=== PATIENT | female | born 1970 | race African-American/Black ===

== ENCOUNTER 2016-04-26 13:07 | Emergency (ER) | payer MEDICAID ==
[~2016-04-26] VITALS: Ht 167.6 cm; Wt 78.9 kg
[~2016-04-26 13:07] MED LIST: ATEN-60 PO; CITA20TA3 PO; CYCL10TA3 PO; DIPH2.5T73 PO; ERGO1CAP6 PO; ESCI20TA51 PO; LOR05T PO; MET10T PO; TRAM-297 PO; [UNRECOGNIZED DRUG - CODE] PO
[2016-04-26 13:41] LABS: Basophils # (auto) 0 uL; Basophils % (auto) 0.7 % (0.0-2.0); DEFINITIVE VIEW TRANSMISSION; Eosinophils # (auto) 0.1 uL; Eosinophils % (auto) 1.3 % (0.0-7.0); Hematocrit 37.2 % (36.0-46.0); Hemoglobin 12.2 g/dL (12.2-16.2); Lymphocytes # (auto) 2.7 uL; Lymphocytes % (auto) 36.5 % (10.0-50.0); Mean Corpuscular Hgb Conc. 32.9 g/dL (32.0-36.0); Mean Corpuscular Volume 75.8 fL (80.0-100.0); Mean Platelet Volume 8.1 fL (7.4-10.4); Monocytes # (auto) 0.6 uL; Monocytes % (auto) 7.6 % (0.0-12.0); Neutrophils % (auto) 53.9 % (37.0-80.0); Platelet Count (auto) 288 10^3/uL (140-450); White Blood Cell 7.4 10^3/uL (4.4-10.8)
[2016-04-26 13:42] LABS: Red Cell Distribution Width 23.3 % (11.6-16.0)
[2016-04-26 13:48] LABS: Urine Bilirubin Negative (Negative); Urine Blood TRACE /uL (Negative); Urine Color Yellow (Yellow); Urine Glucose Normal (Normal); Urine Ketone Negative (Negative); Urine Mucus FEW (None Seen); Urine Nitrite Negative (Negative); Urine RBC 2 /hpf (0 - 4); Urine Squamous Epithelial Cell MOD /hpf (<5); Urine Urobilinogen Normal (Negative); Urine pH 5.5 (5.0-8.0)
[2016-04-26 14:00] LABS: Albumin 3.1 g/dL (3.4-5.0); BUN/Creatinine Ratio 8.1; Bilirubin, Total 0.4 mg/dL (0.2-1.0); Calcium 8.8 mg/dL (8.5-10.1); Magnesium 2.1 mg/dL (1.6-2.6); Potassium 3.9 mmol/L (3.5-5.1)
[2016-04-26 14:54] LABS: Anisocytosis Slight; Microcytosis Moderate; Platelet Estimate Adequate
[2016-04-26] MEDS ORDERED: MORPHINE SULFATE 4 MG/ML SYRG IV ONE (23:30)
[2016-04-26] MEDS ORDERED: ONDANSETRON HCL 4 MG/2 ML VIAL IV ONE (23:30)
[2016-04-26] MEDS ORDERED: SODIUM CHLORIDE 0.9% 1,000 ML IV ONE (23:30)
[2016-04-27 00:34] LABS: Amylase 89 U/L (25-115)
[2016-04-27 01:45] VITALS: BP 125/77
== END 2016-04-27 02:05 | disposition home or self-care (01) ==
LOC: ER 13:17
DX: N39.0 Urinary tract infection, site not specified (principal); R11.2 Nausea with vomiting, unspecified; I25.10 Atherosclerotic heart disease of native coronary artery without angina pectoris; K21.9 Gastro-esophageal reflux disease without esophagitis; Z79.899 Other long term (current) drug therapy; Z91.041 Radiographic dye allergy status
CPT/HCPCS: 36415; 76705; 80053; 81001; 82150; 83690; 83735; 85025; 96361; 96374; 96375; 99285; J2270; J2405; J7030

== ENCOUNTER 2016-05-21 10:46 | Emergency (ER) | payer MEDICAID ==
[~2016-05-21] VITALS: Ht 167.6 cm; Wt 81.6 kg
[2016-05-21 11:47] LABS: Basophils # (auto) 0.1 uL; Basophils % (auto) 1.9 % (0.0-2.0); DEFINITIVE VIEW TRANSMISSION; Eosinophils # (auto) 0.1 uL; Eosinophils % (auto) 1.1 % (0.0-7.0); Hemoglobin 11.9 g/dL (12.2-16.2); Lymphocytes # (auto) 2.4 uL; Mean Corpuscular Hemoglobin 25.2 pg (28.0-32.0); Mean Corpuscular Hgb Conc. 32.2 g/dL (32.0-36.0); Mean Corpuscular Volume 78.3 fL (80.0-100.0); Mean Platelet Volume 7.9 fL (7.4-10.4); Monocytes # (auto) 0.6 uL; Monocytes % (auto) 8.7 % (0.0-12.0); Neutrophils # (auto) 3.3 uL; Neutrophils % (auto) 51.3 % (37.0-80.0); Platelet Count (auto) 297 10^3/uL (140-450); White Blood Cell 6.4 10^3/uL (4.4-10.8)
[2016-05-21 11:49] LABS: Urine RBC None Seen /hpf (0 - 4)
[2016-05-21 12:09] LABS: BUN/Creatinine Ratio 7.1; Bilirubin, Total 0.4 mg/dL (0.2-1.0); Calcium 8.5 mg/dL (8.5-10.1); Potassium 3.6 mmol/L (3.5-5.1)
[2016-05-21 12:12] LABS: Urine Bilirubin Negative (Negative); Urine Blood Negative /uL (Negative); Urine Color Yellow (Yellow); Urine Glucose Normal (Normal); Urine Ketone Negative (Negative); Urine Mucus FEW (None Seen); Urine Nitrite Negative (Negative); Urine Squamous Epithelial Cell MOD /hpf (<5); Urine Urobilinogen Normal (Negative); Urine pH 5.5 (5.0-8.0)
[2016-05-21 16:19] VITALS: BP 152/85
[2016-05-21] MEDS ORDERED: SODIUM CHLORIDE 0.9% 1,000 ML IV ONE (16:21)
[2016-05-21] MEDS ORDERED: PROMETHAZINE HCL 25 MG/ML 1ML IV ONE (16:30)
[2016-05-21] MEDS ORDERED: NALBUPHINE HCL 10 MG/1ml INJECTION IV ONE (16:30)
[2016-05-21] MEDS ORDERED: NALBUPHINE HCL 10 MG/1ml INJECTION IM ONE (17:00)
[2016-05-21] MEDS ORDERED: PROMETHAZINE HCL 25 MG/ML 1ML IM ONE (17:00)
== END 2016-05-21 17:45 | disposition home or self-care (01) ==
LOC: ER 10:46
DX: R10.11 Right upper quadrant pain (principal); G89.29 Other chronic pain; D50.9 Iron deficiency anemia, unspecified; I10 Essential (primary) hypertension; I25.10 Atherosclerotic heart disease of native coronary artery without angina pectoris; K21.9 Gastro-esophageal reflux disease without esophagitis; K86.1 Other chronic pancreatitis; R11.2 Nausea with vomiting, unspecified; R19.7 Diarrhea, unspecified; Z87.440 Personal history of urinary (tract) infections; Z91.041 Radiographic dye allergy status; Z79.899 Other long term (current) drug therapy
CPT/HCPCS: 36415; 80053; 81001; 83690; 85025; 96372; 99284; J2300; J2550; J7030

== ENCOUNTER 2016-11-24 08:15 | Emergency (ER) | payer MEDICAID ==
[~2016-11-24] VITALS: Ht 167.6 cm; Wt 73.9 kg
[2016-11-24 08:38] LABS: Basophils # (auto) 0 uL; Basophils % (auto) 0.5 % (0.0-2.0); CONDITION Y; DEFINITIVE SEE PRINTOUT; Eosinophils # (auto) 0.1 uL; Eosinophils % (auto) 1.3 % (0.0-7.0); Hematocrit 38.8 % (36.0-46.0); Hemoglobin 13.1 g/dL (12.2-16.2); Lymphocytes # (auto) 3.8 uL; Lymphocytes % (auto) 41.5 % (10.0-50.0); Mean Corpuscular Hemoglobin 25.9 pg (28.0-32.0); Mean Corpuscular Hgb Conc. 33.7 g/dL (32.0-36.0); Mean Corpuscular Volume 76.8 fL (80.0-100.0); Mean Platelet Volume 8.2 fL (7.4-10.4); Monocytes # (auto) 0.5 uL; Monocytes % (auto) 5.7 % (0.0-12.0); Neutrophils # (auto) 4.7 uL; Platelet Count (auto) 373 10^3/uL (140-450); Red Cell Distribution Width 19.9 % (11.6-16.0); White Blood Cell 9.2 10^3/uL (4.4-10.8)
[2016-11-24 09:08] LABS: Alkaline Phosphatase 68 U/L (45-117); Anion Gap 8 (5-15); Aspartate Aminotransferase 19 U/L (15-37); BUN/Creatinine Ratio 10.7; Bilirubin, Total 0.6 mg/dL (0.2-1.0); Blood Urea Nitrogen 11 mg/dL (7-18); Calcium 8.7 mg/dL (8.5-10.1); Carbon Dioxide 26 mmol/L (21-32); Chloride 104 mmol/L (98-107); GFR African American 74 mL/min; GFR Non-African American 61 mL/min; Glucose 101 mg/dL (74-106); Potassium 3.8 mmol/L (3.5-5.1); Sodium 138 mmol/L (136-145); Total Protein 7.3 g/dL (6.4-8.2)
[2016-11-24 09:35] LABS: Urine Bilirubin Negative (Negative); Urine Blood Negative /uL (Negative); Urine Color Yellow (Yellow); Urine Glucose Normal (Normal); Urine Ketone Negative (Negative); Urine Mucus FEW (None Seen); Urine Nitrite Negative (Negative); Urine RBC 1 /hpf (0 - 4); Urine Squamous Epithelial Cell FEW /hpf (<5); Urine pH 5.5 (5.0-8.0)
[2016-11-24 10:07] LABS: Microcytosis Slight
[2016-11-24 10:08] LABS: Platelet Estimate Adequate
[2016-11-24 10:10] LABS: Hypochromia Slight
[2016-11-24 10:11] LABS: Anisocytosis Slight
[2016-11-24] MEDS ORDERED: ONDANSETRON ODT 4 MG TAB PO ONE (12:15)
[2016-11-24] MEDS ORDERED: HYDROcodone-ACET 7.5/325MG TAB PO ONE (12:15)
[2016-11-24 13:55] VITALS: BP 119/74
== END 2016-11-24 15:12 | disposition home or self-care (01) ==
LOC: ER 08:15
DX: G89.29 Other chronic pain (principal); R10.11 Right upper quadrant pain; K21.9 Gastro-esophageal reflux disease without esophagitis; I25.10 Atherosclerotic heart disease of native coronary artery without angina pectoris; Z87.440 Personal history of urinary (tract) infections; Z79.899 Other long term (current) drug therapy; Z91.041 Radiographic dye allergy status
CPT/HCPCS: 36415; 74176; 80053; 81001; 81025; 83690; 84484; 85025; 99285; Q0162

== ENCOUNTER 2017-09-02 10:09 | Observation (INO) | payer MEDICAID ==
[~2017-09-02] VITALS: Ht 167.6 cm; Wt 79.4 kg
[~2017-09-02 10:09] MED LIST changes: -LOR05T PO; +LORA-654 PO
[2017-09-02 11:01] LABS: Basophils # (auto) 0.1 uL; Eosinophils # (auto) 0.1 uL; Hemoglobin 11.9 g/dL (12.2-16.2); Mean Corpuscular Volume 75.1 fL (80.0-100.0); Monocytes # (auto) 0.5 uL; Nucleated Red Blood Cells % 0.1 %
[2017-09-02 11:03] LABS: Basophils % (auto) 0.8 % (0.0-2.0); Hematocrit 34.8 % (36.0-46.0); Lymphocytes # (auto) 2.5 uL; Lymphocytes % (auto) 37.2 % (10.0-50.0); Mean Corpuscular Hemoglobin 25.7 pg (28.0-32.0); Mean Corpuscular Hgb Conc. 34.3 g/dL (32.0-36.0); Monocytes % (auto) 7.4 % (0.0-12.0); Neutrophils # (auto) 3.6 uL; Neutrophils % (auto) 53.6 % (37.0-80.0); Platelet Count (auto) 310 10^3/uL (140-450); Red Blood Cells 4.63 10^6/uL (4.0-5.20); Red Cell Distribution Width 16.3 % (11.8-14.3); White Blood Cell 6.7 10^3/uL (4.4-10.8)
[2017-09-02 11:20] LABS: BUN/Creatinine Ratio 7.6; Bilirubin, Total 0.3 mg/dL (0.2-1.0); Calcium 8.5 mg/dL (8.5-10.1); Total Protein 7.3 g/dL (6.4-8.2)
[2017-09-02 11:36] LABS: Urine Bacteria FEW /hpf (None Seen); Urine Blood Negative /uL (Negative); Urine Mucus FEW (None Seen); Urine WBC 3 /hpf (0 - 5)
[2017-09-02] MEDS ORDERED: SODIUM CHLORIDE 0.9% 1,000 ML IV ONE (13:45)
[2017-09-02] MEDS ORDERED: ONDANSETRON HCL 4 MG/2 ML VIAL IV ONE (13:45)
[2017-09-02] MEDS ORDERED: KETOROLAC TROMETH 30 MG/ML 1ML VIAL IV ONE (13:45)
[2017-09-02 15:05] VITALS: BP 109/63
== END 2017-09-02 15:34 | disposition home or self-care (01) | DRG 251 ==
LOC: ER 10:09 → OVERFLOW 13:36 → ER 15:34
PROVIDERS: ADMIT Family Medicine; ATTEND Family Medicine
DX: R10.9 Unspecified abdominal pain (principal); I10 Essential (primary) hypertension; N39.0 Urinary tract infection, site not specified; F17.210 Nicotine dependence, cigarettes, uncomplicated; K21.9 Gastro-esophageal reflux disease without esophagitis; Q62.5 Duplication of ureter; D57.3 Sickle-cell trait; Z82.49 Family history of ischemic heart disease and other diseases of the circulatory system
CPT/HCPCS: 36415; 74176; 80053; 81001; 81025; 83690; 85025; 96361; 96374; 96375; 99285; G0378; J1885; J2405; J7030

== ENCOUNTER 2017-09-06 12:31 | Emergency (ER) | payer MEDICAID ==
[~2017-09-06] VITALS: Ht 167.6 cm; Wt 78.9 kg
[2017-09-06 14:06] VITALS: BP 102/78
[2017-09-06 14:20] LABS: Urine Bacteria NONE SEEN /hpf (None Seen); Urine Blood Negative /uL (Negative); Urine Specific Gravity 1.025 (1.001-1.035); Urine WBC 1 /hpf (0 - 5)
== END 2017-09-06 16:14 | disposition home or self-care (01) ==
LOC: ER 12:35
DX: R10.9 Unspecified abdominal pain (principal); K21.9 Gastro-esophageal reflux disease without esophagitis; I10 Essential (primary) hypertension; M41.9 Scoliosis, unspecified; Z91.041 Radiographic dye allergy status
CPT/HCPCS: 81001

== ENCOUNTER 2019-03-29 07:34 | Emergency (ER) | payer MEDICAID ==
[~2019-03-29] VITALS: Ht 167.6 cm; Wt 83.5 kg
[~2019-03-29 07:34] MED LIST changes: +ALBUAER3 IN; +CHOL20007 PO; +CYPR4TAB50 PO; +DULO60CA PO; -LORA-654 PO; +LORA0.5T12 PO; +ONDA-144 PO; +PANC1CAP PO; +PANT20TA59 PO; -[UNRECOGNIZED DRUG - CODE] PO
[2019-03-29 08:05] LABS: Basophils # (auto) 0.1 uL; Eosinophils # (auto) 0.1 uL; Eosinophils % (auto) 1.4 % (0.0-7.0); Mean Corpuscular Volume 73.1 fL (80.0-100.0); Monocytes # (auto) 0.6 uL
[2019-03-29 08:08] LABS: Basophils % (auto) 1.1 % (0.0-2.0); Hematocrit 34.6 % (36.0-46.0); Hemoglobin 11.6 g/dL (12.2-16.2); Lymphocytes # (auto) 2.8 uL; Lymphocytes % (auto) 32.5 % (10.0-50.0); Mean Corpuscular Hemoglobin 24.6 pg (28.0-32.0); Mean Corpuscular Hgb Conc. 33.6 g/dL (32.0-36.0); Monocytes % (auto) 7.1 % (0.0-12.0); Neutrophils # (auto) 5.1 uL; Neutrophils % (auto) 57.9 % (37.0-80.0); Nucleated Red Blood Cells % 0.1 %; Platelet Count (auto) 322 10^3/uL (140-450); Red Blood Cells 4.74 10^6/uL (4.0-5.20); Red Cell Distribution Width 17.7 % (11.8-14.3); White Blood Cell 8.8 10^3/uL (4.4-10.8)
[2019-03-29 08:17] LABS: Urine Bacteria FEW /hpf (None Seen); Urine Blood Negative /uL (Negative); Urine Mucus FEW (None Seen); Urine Specific Gravity 1.027 (1.001-1.035); Urine WBC 3 /hpf (0 - 5)
[2019-03-29 08:55] LABS: Calcium 8.3 mg/dL (8.5-10.1)
[2019-03-29 08:58] LABS: Bilirubin, Total 0.3 mg/dL (0.2-1.0); Total Protein 7.6 g/dL (6.4-8.2)
[2019-03-29] MEDS ORDERED: SODIUM CHLORIDE 0.9% 500 ML IVB ONE (10:37)
[2019-03-29] MEDS ORDERED: SODIUM CHLORIDE 0.9% 1,000 ML IV ONE (10:37)
[2019-03-29] MEDS ORDERED: KETOROLAC TROMETH 30 MG/ML 1ML VIAL IV ONE (10:45)
[2019-03-29] MEDS ORDERED: FLEET MINERAL OIL ENEMA 133 ML PR ONE (10:45)
[2019-03-29] MEDS ORDERED: PROMETHAZINE HCL 25 MG/ML 1ML IV PRN (10:45)
[2019-03-29 12:30] LABS: Magnesium 2.2 mg/dL (1.6-2.6)
[2019-03-29 13:20] VITALS: BP 105/63
== END 2019-03-29 14:15 | disposition home or self-care (01) ==
LOC: ER 07:38
DX: R82.71 Bacteriuria (principal); K59.00 Constipation, unspecified; G89.4 Chronic pain syndrome; E46 Unspecified protein-calorie malnutrition; Z68.29 Body mass index [BMI] 29.0-29.9, adult; K21.9 Gastro-esophageal reflux disease without esophagitis; I10 Essential (primary) hypertension; Z79.899 Other long term (current) drug therapy; Z88.8 Allergy status to other drugs, medicaments and biological substances
CPT/HCPCS: 36415; 71046; 74176; 80053; 81001; 81025; 83690; 83735; 85025; 96361; 96374; 96375; 99284; J1885; J2550; J7030; J7040

== ENCOUNTER 2021-03-08 11:17 | Emergency (ER) | payer MEDICAID ==
[~2021-03-08] VITALS: Ht 167.6 cm; Wt 88.5 kg
[~2021-03-08 11:17] MED LIST changes: +ESCI-34 PO; -ESCI20TA51 PO; -LORA0.5T12 PO; +LORA0.5T20 PO
[2021-03-08 11:52] LABS: Basophils # (auto) 0.1 10 ^3/uL (0-0.2); Basophils % (auto) 0.7 % (0.0-2.0); Eosinophils # (auto) 0 10 ^3/uL (0-0.8); Eosinophils % (auto) 0.3 % (0.0-7.0); Hematocrit 37.9 % (36.0-46.0); Hemoglobin 12.8 g/dL (12.2-16.2); Lymphocytes # (auto) 4.1 10 ^3/uL (0.4-5.4); Lymphocytes % (auto) 28.6 % (10.0-50.0); Mean Corpuscular Hgb Conc. 33.8 g/dL (32.0-36.0); Mean Corpuscular Volume 79.9 fL (80.0-100.0); Monocytes % (auto) 7.1 % (0.0-12.0); Neutrophils # (auto) 9.1 10 ^3/uL (1.6-8.6); Neutrophils % (auto) 63.3 % (37.0-80.0); Nucleated Red Blood Cells % 0.2 %; Red Blood Cells 4.74 10^6/uL (4.0-5.20); Red Cell Distribution Width 18.9 % (11.8-14.3); White Blood Cell 14.3 10^3/uL (4.4-10.8)
[2021-03-08 12:08] LABS: Potassium 3.9 mmol/L (3.5-5.1)
[2021-03-08 12:18] LABS: Albumin 2.9 g/dL (3.4-5.0); BUN/Creatinine Ratio 15.5; Bilirubin, Total 0.3 mg/dL (0.2-1.0); Calcium 8.5 mg/dL (8.5-10.1); Total Protein 6.8 g/dL (6.4-8.2)
[2021-03-08 15:00] VITALS: BP 126/84
== END 2021-03-08 15:15 | disposition home or self-care (01) ==
LOC: ER 11:17
DX: R07.89 Other chest pain (principal); K21.9 Gastro-esophageal reflux disease without esophagitis; I10 Essential (primary) hypertension; Z86.2 Personal history of diseases of the blood and blood-forming organs and certain disorders involving the immune mechanism; Z79.899 Other long term (current) drug therapy; Z88.8 Allergy status to other drugs, medicaments and biological substances
CPT/HCPCS: 36415; 71046; 80053; 84484; 85025; 93005

== ENCOUNTER 2021-05-07 18:38 | Emergency (ER) | payer MEDICAID ==
[~2021-05-07] VITALS: Ht 167.6 cm; Wt 83.0 kg
[2021-05-07 18:40] VITALS: BP 146/75
== END 2021-05-08 01:32 | disposition left against medical advice (07) ==
LOC: ER 18:38
DX: Z46.6 Encounter for fitting and adjustment of urinary device (principal); Z53.21 Procedure and treatment not carried out due to patient leaving prior to being seen by health care provider

== ENCOUNTER 2022-05-12 19:51 | Emergency (ER) | payer MEDICAID ==
[~2022-05-12] VITALS: Ht 167.6 cm; Wt 86.5 kg
[2022-05-12 21:50] LABS: Urine Bacteria NONE SEEN /hpf (None Seen); Urine Blood 3+ /uL (Negative); Urine Specific Gravity 1.033 (1.001-1.035); Urine WBC 233 /hpf (0 - 5)
[2022-05-12] MEDS ORDERED: MORPHINE SULFATE 4 MG/ML SYR/VIAL IM ONE (23:45)
[2022-05-12] MEDS ORDERED: ONDANSETRON HCL 4 MG/2 ML VIAL IM ONE (23:45)
[2022-05-13 00:18] LABS: Basophils # (auto) 0 10 ^3/uL (0-0.2); Basophils % (auto) 0.4 % (0.0-2.0); Eosinophils # (auto) 0.3 10 ^3/uL (0-0.8); Eosinophils % (auto) 2.5 % (0.0-7.0); Hematocrit 38.7 % (36.0-46.0); Hemoglobin 13.1 g/dL (12.2-16.2); Lymphocytes # (auto) 5.4 10 ^3/uL (0.4-5.4); Lymphocytes % (auto) 50.5 % (10.0-50.0); Mean Corpuscular Hemoglobin 28.1 pg (28.0-32.0); Mean Corpuscular Hgb Conc. 33.7 g/dL (32.0-36.0); Mean Corpuscular Volume 83.3 fL (80.0-100.0); Monocytes # (auto) 0.9 10 ^3/uL (0-1.3); Monocytes % (auto) 8.4 % (0.0-12.0); Neutrophils # (auto) 4.1 10 ^3/uL (1.6-8.6); Neutrophils % (auto) 38.2 % (37.0-80.0); Nucleated Red Blood Cells % 0.2 %; Red Blood Cells 4.65 10^6/uL (4.0-5.20); Red Cell Distribution Width 16.3 % (11.8-14.3); White Blood Cell 10.7 10^3/uL (4.4-10.8)
[2022-05-13 00:32] LABS: Alanine Aminotransferase 23 U/L (13-56); Albumin 3.2 g/dL (3.4-5.0); Anion Gap 7 (5-15); Aspartate Aminotransferase 14 U/L (15-37); BUN/Creatinine Ratio 13.6; Blood Urea Nitrogen 12 mg/dL (7-18); Calcium 8.7 mg/dL (8.5-10.1); Carbon Dioxide 26 mmol/L (21-32); Chloride 109 mmol/L (98-107); GFR African American 87 mL/min; GFR Non-African American 72 mL/min; Glucose 109 mg/dL (74-106); Lipase 134 U/L (73-393); Magnesium 1.8 mg/dL (1.6-2.6); Potassium 4.1 mmol/L (3.5-5.1); Sodium 142 mmol/L (136-145)
[2022-05-13 00:35] LABS: Alkaline Phosphatase 59 U/L (45-117); Bilirubin, Total 0.3 mg/dL (0.2-1.0)
[2022-05-13] MEDS ORDERED: CEPH-510 PO (04:37)
[2022-05-13] MEDS ORDERED: ONDANSETRON ODT 4 MG TAB PO ONE (04:45)
[2022-05-13] MEDS ORDERED: cefTRIAXone SOD 1,000 MG VL IM ONE (04:45)
[2022-05-13] MEDS ORDERED: HYDROcodone-ACET 10/325MG TAB PO ONE (04:45)
[2022-05-13 05:43] VITALS: BP 149/81
== END 2022-05-13 05:48 | disposition home or self-care (01) ==
LOC: ER 19:51
DX: N39.0 Urinary tract infection, site not specified (principal); R32 Unspecified urinary incontinence; K21.9 Gastro-esophageal reflux disease without esophagitis; I10 Essential (primary) hypertension
CPT/HCPCS: 36415; 74176; 80053; 81001; 83605; 83690; 83735; 85025; 96372; 99285; J0696; Q0162

== ENCOUNTER 2023-09-30 15:57 | Emergency (ER) | payer MEDICAID ==
[~2023-09-30] VITALS: Ht 167.6 cm; Wt 86.1 kg
[~2023-09-30 15:57] MED LIST changes: +CEPH-510 PO; -DULO60CA PO; +DULO60CA41 PO; -ESCI-34 PO; +ESCI1TAB37 PO; +LORA-1121 PO; -LORA0.5T20 PO
[2023-09-30 17:17] LABS: Basophils # (auto) 0 10 ^3/uL (0-0.2); Basophils % (auto) 0.6 % (0.0-2.0); Eosinophils # (auto) 0.1 10 ^3/uL (0-0.8); Eosinophils % (auto) 1.6 % (0.0-7.0); Hematocrit 40.3 % (36.0-46.0); Hemoglobin 13.7 g/dL (12.2-16.2); Lymphocytes # (auto) 3.5 10 ^3/uL (0.4-5.4); Lymphocytes % (auto) 47.3 % (10.0-50.0); Mean Corpuscular Hemoglobin 28.3 pg (28.0-32.0); Mean Corpuscular Hgb Conc. 33.9 g/dL (32.0-36.0); Mean Corpuscular Volume 83.5 fL (80.0-100.0); Monocytes # (auto) 0.6 10 ^3/uL (0-1.3); Monocytes % (auto) 7.7 % (0.0-12.0); Neutrophils # (auto) 3.1 10 ^3/uL (1.6-8.6); Neutrophils % (auto) 42.8 % (37.0-80.0); Nucleated Red Blood Cells % 0.3 %; Red Blood Cells 4.83 10^6/uL (4.0-5.20); Red Cell Distribution Width 16.1 % (11.8-14.3); White Blood Cell 7.3 10^3/uL (4.4-10.8)
[2023-09-30 17:38] LABS: Alanine Aminotransferase 35 U/L (7-40); Albumin 4.2 g/dL (3.2-4.8); Alkaline Phosphatase 79 U/L (46-116); Anion Gap 12 (5-15); Aspartate Aminotransferase 55 U/L (13-40); BUN/Creatinine Ratio 11.5 (10.0-20.0); Bilirubin, Total 0.7 mg/dL (0.2-1.0); Blood Urea Nitrogen 10 mg/dL (9-23); Carbon Dioxide 24 mmol/L (20-30); Chloride 109 mmol/L (98-107); Glucose 159 mg/dL (74-106); Lipase 27 U/L (12-53); Potassium 4.5 mmol/L (3.5-5.1); Sodium 145 mmol/L (136-145); Total Protein 6.9 g/dL (5.7-8.2)
[2023-09-30 18:11] LABS: Lactic Acid w/Reflex 2.5 mmol/L (0.4-2.0)
[2023-09-30 20:32] LABS: Urine Bacteria FEW /hpf (None Seen); Urine Blood Negative /uL (Negative); Urine Clarity Clear (Clear); Urine Color Yellow (Yellow); Urine Hyaline Cast FEW /lpf (0 - 2); Urine Mucus FEW (None Seen); Urine Protein, UAD TRACE (Negative); Urine Specific Gravity 1.028 (1.001-1.035); Urine Urobilinogen 2 mg/dL (Negative); Urine WBC 2 /hpf (0 - 5); Urine pH 5.5 (5.0-9.0)
[2023-09-30] MEDS: METOCLOPRAMIDE HCL 5MG/ml INJ 2ml VIAL IM ONE ×2 (21:33→23:33)
[2023-09-30] MEDS ORDERED: PROC10TA6 PO (23:13)
[2023-09-30] MEDS ORDERED: METO-281 PO (23:13)
[2023-09-30] MEDS: ONDANSETRON HCL 4 MG/2 ML VIAL IM ONE (23:33)
[2023-09-30 23:38] VITALS: PULSE 72; RESP 16; O2SAT 98
[2023-09-30] MEDS: SODIUM CHLORIDE 0.9% 1,000 ML IV ONE (23:38)
[2023-09-30 23:41] VITALS: BP 122/84; PULSE 72; RESP 16; O2SAT 98
== END 2023-10-01 00:15 | disposition home or self-care (01) ==
LOC: ER 15:57
DX: R11.2 Nausea with vomiting, unspecified (principal); M19.90 Unspecified osteoarthritis, unspecified site; F32.A Depression, unspecified; K21.9 Gastro-esophageal reflux disease without esophagitis; I10 Essential (primary) hypertension; Z88.5 Allergy status to narcotic agent; Z86.2 Personal history of diseases of the blood and blood-forming organs and certain disorders involving the immune mechanism
CPT/HCPCS: 36415; 74176; 80053; 81001; 83605; 83690; 83880; 84484; 85025; 93005; 96372; 99285; J2405; J2765

== ENCOUNTER 2024-01-19 09:30 | Inpatient (IN) | payer MEDICAID ==
[~2024-01-19] VITALS: Ht 167.6 cm; Wt 88.4 kg
[~2024-01-19 09:30] MED LIST changes: +METO-281 PO; +PROC10TA6 PO
[2024-01-19 10:32] LABS: Chloride 106 mmol/L (98-107); Potassium 4.5 mmol/L (3.5-5.1); Sodium 140 mmol/L (136-145)
[2024-01-19 10:33] LABS: Anion Gap 11 (5-15); Calcium 9.2 mg/dL (8.7-10.4); Carbon Dioxide 23 mmol/L (20-31)
[2024-01-19 10:38] LABS: Glucose 186 mg/dL (74-106)
[2024-01-19 10:40] LABS: BUN/Creatinine Ratio 5.3 (10.0-20.0); Blood Urea Nitrogen < 5 mg/dL (9-23)
[2024-01-19 10:46] LABS: Basophils # (auto) 0 10 ^3/uL (0-0.2); Basophils % (auto) 0.4 % (0.0-2.0); Eosinophils # (auto) 0.2 10 ^3/uL (0-0.8); Eosinophils % (auto) 1.9 % (0.0-7.0); Hematocrit 37.9 % (36.0-46.0); Hemoglobin 13.1 g/dL (12.2-16.2); Lymphocytes # (auto) 3.8 10 ^3/uL (0.4-5.4); Lymphocytes % (auto) 46.4 % (10.0-50.0); Mean Corpuscular Hemoglobin 27.6 pg (28.0-32.0); Mean Corpuscular Hgb Conc. 34.4 g/dL (32.0-36.0); Monocytes # (auto) 0.8 10 ^3/uL (0-1.3); Monocytes % (auto) 10.2 % (0.0-12.0); Neutrophils # (auto) 3.3 10 ^3/uL (1.6-8.6); Neutrophils % (auto) 41.1 % (37.0-80.0); Nucleated Red Blood Cells % 0.1 %; Platelet Count (auto) 218 10^3/uL (140-450); Red Blood Cells 4.74 10^6/uL (4.0-5.20); White Blood Cell 8.1 10^3/uL (4.4-10.8)
[2024-01-19 11:09] LABS: Lipase 33 U/L (12-53)
[2024-01-19 12:00] LABS: Urine Bacteria None Seen /hpf (None Seen)
[2024-01-19 12:09] LABS: Urine Blood Negative /uL (Negative); Urine Clarity Clear (Clear); Urine Color Yellow (Yellow); Urine Protein, UAD Negative (Negative); Urine Specific Gravity 1.013 (1.001-1.035); Urine Urobilinogen Normal (Negative); Urine WBC 1 /hpf (0 - 5)
[2024-01-19] MEDS ORDERED: NITROGLYCERIN 0.4 MG SL TAB SL PRN ×2 (14:45→16:30)
[2024-01-19] MEDS ORDERED: ERGOCALCIFEROL 50,000 UNIT(1.25MG) CAP PO SCH (14:45)
[2024-01-19] MEDS ORDERED: DOCUSATE SOD 100 MG CAP PO PRN (14:45)
[2024-01-19] MEDS: ONDANSETRON HCL 4 MG/2 ML VIAL IV ONE (15:08)
[2024-01-19] MEDS: METOCLOPRAMIDE HCL 5MG/ml INJ 2ml VIAL IV ONE (16:01)
[2024-01-19] MEDS: PANTOPRAZOLE 40 MG/10 ML VIAL INJ IV ONE (16:01)
[2024-01-19] MEDS: HYDROcodone-ACET 5/325MG TAB PO ONE (16:03)
[2024-01-19] MEDS: SODIUM CHLORIDE 0.9% 1,000 ML IV SCH (16:07)
[2024-01-19] MEDS: PANCREATIC ENZYMES PO SCH (17:00)
[2024-01-19] MEDS: METOCLOPRAMIDE HCL 5MG/ml INJ 2ml VIAL IV SCH (18:00)
[2024-01-19] MEDS: PROCHLORPERAZINE EDISYLATE 5 MG/ML 2ML VIAL IV ONE (21:17)
[2024-01-19] MEDS: DULOXETINE HCL 60 MG PO SCH (22:16)
[2024-01-19] MEDS: DEXTROSE (50%) 50ML SYRG IV ONE (23:22)
[2024-01-19] MEDS: ACCU-CHEK COMFORT CURVE STRIP VI ONE (23:23)
[2024-01-19] MEDS: InsuLIN REG 1unit/0.01ml Soln (100units/ml) SC ONE (23:29)
[2024-01-20] MEDS: MORPHINE SULFATE INJ 2 MG/ml SYRG IV PRN (00:39)
[2024-01-20] MEDS: ONDANSETRON HCL 4 MG/2 ML VIAL IV PRN (00:41)
[2024-01-20 00:59] VITALS: PULSE 80; RESP 14; O2SAT 97
[2024-01-20 01:50] VITALS: PULSE 93; RESP 20; O2SAT 96
[2024-01-20 04:53] LABS: Basophils # (auto) 0.1 10 ^3/uL (0-0.2); Basophils % (auto) 0.6 % (0.0-2.0); Eosinophils # (auto) 0.2 10 ^3/uL (0-0.8); Eosinophils % (auto) 2.4 % (0.0-7.0); Hemoglobin 13.2 g/dL (12.2-16.2); Lymphocytes # (auto) 3.4 10 ^3/uL (0.4-5.4); Mean Corpuscular Hemoglobin 27.7 pg (28.0-32.0); Mean Corpuscular Hgb Conc. 34.8 g/dL (32.0-36.0); Mean Corpuscular Volume 79.8 fL (80.0-100.0); Monocytes # (auto) 0.8 10 ^3/uL (0-1.3); Monocytes % (auto) 9.6 % (0.0-12.0); Neutrophils # (auto) 4.1 10 ^3/uL (1.6-8.6); Neutrophils % (auto) 47.4 % (37.0-80.0); Nucleated Red Blood Cells % 0.1 %; Platelet Count (auto) 223 10^3/uL (140-450); Red Blood Cells 4.76 10^6/uL (4.0-5.20); Red Cell Distribution Width 15.9 % (11.8-14.3); White Blood Cell 8.6 10^3/uL (4.4-10.8)
[2024-01-20 05:21] LABS: Alanine Aminotransferase 39 U/L (7-40); Alkaline Phosphatase 86 U/L (46-116); Anion Gap 10 (5-15); Calcium 9.3 mg/dL (8.7-10.4); Carbon Dioxide 25 mmol/L (20-31); Chloride 107 mmol/L (98-107); Glucose 149 mg/dL (74-106); Potassium 4.4 mmol/L (3.5-5.1); Sodium 142 mmol/L (136-145)
[2024-01-20 05:22] LABS: Albumin 3.9 g/dL (3.2-4.8); Aspartate Aminotransferase 38 U/L (13-40); Bilirubin, Total 0.6 mg/dL (0.2-1.0); Total Protein 6.5 g/dL (5.7-8.2)
[2024-01-20 05:32] LABS: BUN/Creatinine Ratio 6.2 (10.0-20.0); Blood Urea Nitrogen < 5 mg/dL (9-23)
[2024-01-20] MEDS: ACCU-CHEK COMFORT CURVE STRIP VI ONE (07:00)
[2024-01-20] MEDS: DEXTROSE (50%) 50ML SYRG IV ONE (07:00)
[2024-01-20] MEDS: InsuLIN REG 1unit/0.01ml Soln (100units/ml) SC ONE (07:09)
[2024-01-20] MEDS ORDERED: DEXTROSE (50%) 50ML SYRG IV PRN (07:30)
[2024-01-20 08:00] VITALS: PULSE 87; RESP 18; O2SAT 95
[2024-01-20 08:44] VITALS: BP 141/72; PULSE 72; PULSE 96; RESP 17; TEMP 98.2; O2SAT 97; O2SAT 99
[2024-01-20] MEDS: PANTOPRAZOLE 40 MG/10 ML VIAL INJ IV SCH (09:07)
[2024-01-20] MEDS: CITALOPRAM HYDROBR 20 MG TAB PO SCH (09:07)
[2024-01-20] MEDS ORDERED: PATIENTS OWN MEDICATION (Escitalopram Oxalate 20 MG) PO SCH (10:00)
[2024-01-20] MEDS: InsuLIN REG 1unit/0.01ml Soln (100units/ml) SC SCH (11:30)
[2024-01-20] MEDS ORDERED: GAB100C PO (11:34)
[2024-01-20] MEDS ORDERED: FOLI-119 PO (11:34)
[2024-01-20] MEDS ORDERED: VIBE75TA PO (11:34)
[2024-01-20] MEDS ORDERED: ROSU10TA64 PO (11:34)
[2024-01-20] MEDS ORDERED: METH2.5T62 PO (11:34)
[2024-01-20] MEDS ORDERED: LEUC5TAB PO (11:34)
[2024-01-20] MEDS ORDERED: [UNRECOGNIZED DRUG - CODE] SC (11:34)
[2024-01-20] MEDS ORDERED: QUET100T47 PO (11:34)
[2024-01-20] MEDS ORDERED: PANC3600 PO (11:34)
[2024-01-20] MEDS ORDERED: ADAL40IN2 SC (11:34)
[2024-01-20] MEDS ORDERED: ASPI-325 PO (11:34)
[2024-01-20] MEDS ORDERED: GLIP5TAB21 PO (11:36)
[2024-01-20] MEDS ORDERED: IRON50IN3 IJ (11:39)
[2024-01-20] MEDS: ATENOLOL 25 MG TAB PO SCH (12:45)
[2024-01-20] MEDS: PROCHLORPERAZINE EDISYLATE 5 MG/ML 2ML VIAL IV PRN (13:06)
[2024-01-20] MEDS: ACCU-CHEK COMFORT CURVE STRIP VI SCH (13:11)
[2024-01-20] MEDS: cefTRIAXone 1GM/50ML D5W 50 ML IV ONE (14:12)
[2024-01-20] MEDS: METHOTREXATE 2.5 MG TAB PO SCH (14:44)
[2024-01-20] MEDS: metroNIDAZOLE 500MG/100ML 100 ML IV SCH (14:44)
[2024-01-20] MEDS: PANCREATIC ENZYMES PO SCH (14:45)
[2024-01-20 20:59] VITALS: BP 131/78; PULSE 74; RESP 18; TEMP 98.2; O2SAT 94
[2024-01-20] MEDS: traMADol HCL 50 MG TAB PO ONE (23:20)
[2024-01-21] VITALS (7 sets, daily range): BP systolic 115–143; BP diastolic 61–83; PULSE 79–93; RESP 16–18; TEMP 98.1–98.2; O2SAT 93–97
[2024-01-21] MEDS: cefTRIAXone 1GM/50ML D5W 50 ML IV SCH (10:16)
[2024-01-21] MEDS: traMADol HCL 50 MG TAB PO PRN (17:16)
[2024-01-22 01:00] VITALS: BP 134/75; PULSE 99; RESP 22; TEMP 97.9; O2SAT 100
[2024-01-22 05:00] VITALS: BP 139/81; PULSE 71; RESP 20; TEMP 98.7; O2SAT 95
[2024-01-22 09:00] VITALS: BP 131/81; PULSE 92; RESP 17; TEMP 98.2; O2SAT 94
[2024-01-22] MEDS ORDERED: METR-344 PO (09:35)
[2024-01-22] MEDS ORDERED: TRAM-626 PO (09:35)
== END 2024-01-22 13:47 | disposition home or self-care (01) | DRG 248 ==
LOC: ER 09:30 → OVERFLOW 16:19 → CENTRAL 01-20 08:45
PROVIDERS: ADMIT Nurse Practitioner Family; ATTEND Family Medicine
DX: A04.9 Bacterial intestinal infection, unspecified (principal); K76.0 Fatty (change of) liver, not elsewhere classified; L40.59 Other psoriatic arthropathy; D16.9 Benign neoplasm of bone and articular cartilage, unspecified; D64.9 Anemia, unspecified; E11.65 Type 2 diabetes mellitus with hyperglycemia; D32.9 Benign neoplasm of meninges, unspecified; D57.3 Sickle-cell trait; F41.9 Anxiety disorder, unspecified; I10 Essential (primary) hypertension; K44.9 Diaphragmatic hernia without obstruction or gangrene; K21.9 Gastro-esophageal reflux disease without esophagitis; F32.A Depression, unspecified; K86.1 Other chronic pancreatitis; M79.7 Fibromyalgia; Z86.011 Personal history of benign neoplasm of the brain; Z83.3 Family history of diabetes mellitus; Z83.2 Family history of diseases of the blood and blood-forming organs and certain disorders involving the immune mechanism; Z82.49 Family history of ischemic heart disease and other diseases of the circulatory system; Z84.81 Family history of carrier of genetic disease; Z88.8 Allergy status to other drugs, medicaments and biological substances; Z79.899 Other long term (current) drug therapy; Z80.9 Family history of malignant neoplasm, unspecified
CPT/HCPCS: 36415; 74176; 80048; 80053; 81001; 81025; 82962; 83036; 83690; 85025; 96372; 96374; 96375; G0378; J1815; J2405; J2470; J3490

== ENCOUNTER 2025-04-13 11:46 | Emergency (ER) | payer MEDICAID ==
[~2025-04-13] VITALS: Ht 167.6 cm; Wt 83.6 kg
[~2025-04-13 11:46] MED LIST changes: +ADAL40IN2 SC; +ASPI-325 PO; -CEPH-510 PO; -CYPR4TAB50 PO; -DIPH2.5T73 PO; -DULO60CA41 PO; -ESCI1TAB37 PO; +FOLI-119 PO; +GAB100C PO; +GLIP5TAB21 PO; +IRON50IN3 IJ; +LEUC5TAB PO; -LORA-1121 PO; +METH2.5T62 PO; +METR-344 PO; -ONDA-144 PO; -PANC1CAP PO; +PANC3600 PO; +QUET100T47 PO; +ROSU10TA64 PO; -TRAM-297 PO; +TRAM-626 PO; +VIBE75TA PO; +[UNRECOGNIZED DRUG - CODE] SC
--- NOTE | 2025-04-13 12:58 | ED.PDOC ---
GI ASSESSMENT HPI Comments A 54 year old woman with PMHx of HTN, diabetes, and pancreatitis presents to the emergency department for chief complaint of abdominal pain onset 2 weeks ago. Pt reports symptoms of nausea and vomiting that she is associating with her current Rx plan. Pt reports she was on Percocet but began taking it in combination with Miralax to prevent constipation. Pt denies associated symptoms of shortness of breath, dizziness, chest pain, fever, or chills. Chief Complaint: Nausea/Vomiting Time Seen by MD: 12:55 Primary Care Provider: FIOR Reviewed Notes: Nurses Notes, Medications, Allergies Allergies: Coded Allergies: Iodine (Unverified Allergy, Unknown, 09/30/13) Home Meds Active Scripts Metronidazole (Flagyl) 500 Mg Tab, 1 TAB PO TID, #30 TAB Prov:NICOLÁS WILLIS MD 01/22/24 Tramadol HCl (Tramadol HCl) 50 Mg Tab, 50 MG PO QID PRN, #30 TAB Prov:NICOLÁS WILLIS MD 01/22/24 Prochlorperazine Maleate (Compazine) 10 Mg Tb, 1 TAB PO Q6HR, #20 TAB 0 Refills Prov:ALECIA WEISS PAC 09/30/23 Metoclopramide Hcl (Reglan) 10 Mg Tab, 10 MG PO Q6HP PRN, #20 TAB Prov:ALECIA WEISS PAC 09/30/23 Reported Medications Iron Dextran (Infed) 50 Mg/Ml Inj, 50 MG IJ, INJ 01/20/24 Glipizide (Glipizide) 5 Mg Tab, 1 TAB PO BID 01/20/24 Glucagon (Gvoke Hypopen 2-Pack) 0.5 Mg/0.1 Ml Inj, 0.5 MG SC, INJ 01/20/24 Gabapentin (Gabapentin) 100 Mg Cap, 3 PO TID 01/20/24 Leucovorin Calcium (Leucovorin Calcium) 5 Mg Tab, 1 TAB PO QWEEKLY 01/20/24 Vibegron (Gemtesa) 75 Mg Tab, 1 TAB PO DAILY 01/20/24 Aspirin (Aspirin Low Dose) 81 Mg Tab, 1 TAB PO DAILY 01/20/24 Pancrelipase (Lipase-Protease- (CREON) 36,000 Unt Cap, 2 CAP PO TID 01/20/24 Adalimumab (Humira Pen) 40 Mg/0.4 Ml Inj, 40 MG SC 01/20/24 Methotrexate (Methotrexate Sodium) 2.5 Mg Tab, 4 TAB PO QWEEKLY 01/20/24 Folic Acid (Folic Acid) 1 Mg Tab, 1 TAB PO DAILY 01/20/24 Rosuvastatin Calcium (Rosuvastatin Calcium) 10 Mg Tab, 1 TAB PO DAILY 01/20/24 Quetiapine Fumerate (QUETIAPINE FUMARATE) 100 Mg Tab, 1 TAB PO 01/20/24 Albuterol Sulfate (VENTOLIN MDI) 90 Mcg Ih, 90 MCG IN for 30 Days, MCG 09/29/18 Pantoprazole Sodium Sesquihydr (Pantoprazole Sodium Dr) 20 Mg Tab, 20 MG PO DAILY, TAB 09/29/18 Cholecalciferol (VITAMIN D3) 2,000 Unit Tab, 1000 UNIT PO BID, TAB 09/29/18 Citalopram Hydrobromide (CeleXA TABLET) 20 Mg Tb, 20 MG PO DAILY 10/07/15 Ergocalciferol (Vitamin D) 50,000 Unt Cap, 96827 UNT PO QWEEKLY, CAP 10/07/15 Atenolol (Atenolol) 25 Mg Tab, 1 TAB PO DAILY, #30 TAB 5 Refills 10/06/15 Metoclopramide Hcl (REGLAN TABLET) 10 Mg Tb, 10 MG PO TIDBM 10/06/15 Cyclobenzaprine Hcl (FLEXERIL) 10 Mg Tab, 5 MG PO TID, TAB 06/07/14 Information Source: Patient Mode of Arrival: Ambulatory Timing: Weeks Duration: Since onset Prehospital treatment: None Quality: Aching, None Vomitus: None Severity: Moderate Recent: None Pain Location: Diffuse Modifying Factors: Nothing Associated sign and symptoms: Nausea, Vomiting, Constipation Past Medical History PAST MEDICAL HISTORY: Anemia, Arthritis, Depression, DM, GERD, HTN, UTI'S Surgical History: Denies all surgeries SALES ORDER SPECIALIST History: No Pertinent SALES ORDER SPECIALIST History Family History Family History: Family hx of DM, Family hx of Cancer, Family hx of heart malik Family History (Other): Mother has hypertension sickle cell trait and anemia, SLE Social History Smoker: Non-Smoker Alcohol: Denies ETOH Use Drugs: Denies Drug Use Lives In: Home Constitutional: denies: chills, diaphoresis, fatigue, fever, malaise, sweats, weakness, others EENTM: denies: blurred vision, double vision, ear bleeding, ear discharge, ear drainage, ear pain, ear ringing, eye pain, eye redness, hearing loss, mouth pain, mouth swelling, nasal discharge, nose bleeding, nose congestion, nose pain, photophobia, tearing, throat pain, throat swelling, voice changes, others Respiratory: denies: cough, hemoptysis, orthopnea, SOB at rest, shortness of breath, SOB with excertion, stridor, wheezing, others Cardiovascular: denies: chest pain, dizzy spells, diaphoresis, Dyspnea on exertion, edema, irregular heart beat, left arm pain, lightheadedness, palpitations, PND, syncope, others Gastrointestinal: reports: abdominal pain, constipated, nausea, vomiting; denies: abdomen distended, blood streaked bowels, diarrhea, dysphagia, difficulty swallowing, hematemesis, melena, poor appetite, poor fluid intake, re ctal bleeding, rectal pain, others Genitourinary: denies: abnormal vagina bleeding, burning, dyspareunia, dysuria, flank pain, frequency, hematuria, incontinence, pain, , vagina discharge, urgency, others Neurological: denies: dizziness, fainting, headache, left sided numbness, left sided weakness, numbness, paresthesia, pre-existing deficit, right sided numbness, right sided weakness, seizure, speech problems, tingling, tremors, weakness, others Musculoskeletal: denies: back pain, gout, joint pain, joint swelling, muscle pain, muscle stiffness, neck pain, others Integumetry: denies: bruises, change in color, change in hair/nails, dryness, laceration, lesions, lumps, rash, wounds, others Allergic/Immunocompromised: denies: Difficulty Healing, Frequent Infections, Hives, Itching, others Hematologic/Lymphatic: denies: anemia, blood clots, easy bleeding, easy bruising, swollen glands, others Endocrine: denies: excessive hunger, excessive sweating, excessive thirst, excessive urination, flushing, intolerance to cold, intolerance to heat, unexplained weight gain, unexplained weight loss, others Psychiatric: denies: anxiety, bipolar disorder, depression, hopeless, panic disorder, schizophrenia, sleepless, suicidal, others All Other Systems: Reviewed and Negative Physical Exam General Appearance: Moderate Distress HEENT: Normal ENT Inspection, Pharynx Normal, TMs Normal Neck: Full Range of Motion, Non-Tender, Normal, Normal Inspection Respiratory: Chest Non-Tender, Lungs Clear, No Accessory Muscle Use, No Respiratory Distress, Normal Breath Sounds Cardiovascular: No Edema, No JVD, No Murmur, No Gallop, Normal Peripheral Pulses, Regular Rate/Rhythm Breast Exam: Deferred Gastrointestinal: No Organomegaly, Non Tender, No Pulsatile Mass, Normal Bowel Sounds, Soft Genitalia: Deferred Pelvic: Deferred Rectal: Deferred Extremities: No calf tenderness, Normal capillary refill, Normal inspection, Normal range of motion, Non-tender, No pedal edema Musculoskeletal : Apperance: Normal Neurologic: Alert, No Motor Deficits, No Sensory Deficits Cerebellar Function: NOT DONE Reflexes: NOT DONE Skin: Normal Color Peripheral Pulses: 3+ Radial (R), 3+ Radial (L) Lymphatic: No Adenopathy Was a procedure done? Was a procedure done?: No GI differential Dx Differential Diagnosis: Constipation, Diverticular disease, Esophagitis, Gastritis/PUD, Gastroenteritis, Electrolyte Imbalance X-Ray, Labs, Meds, VS Vital Signs Date Time Temp Pulse Resp B/P (MAP) Pulse Ox O2 Delivery O2 Flow Rate FiO2 04/13/25 13:50 118 18 97 Room Air* 0 21 04/13/25 13:50 98.0 118 18 136/99 (111) 97 98.0 04/13/25 11:53 97.7 127 18 157/92 97 97.7 Lab Test 04/13/25 13:57 04/13/25 13:41 Range/Units Urine Color Light-yellow Yellow Urine Clarity Clear Clear Urine pH 5.5 5.0-9.0 Urine Specific [place] 1.017 1.001-1.035 Urine Protein Negative Negative Urine Ketones Negative Negative Urine Blood Negative Negative /uL Urine Nitrite Negative Negative Urine Bilirubin Negative Negative Urine Urobilinogen Normal Negative mg/dL Urine Leukocyte Esterase Negative Negative /uL Urine RBC 1 0 - 4 /hpf Urine Microscopic WBC 1 0-5 /HPF Urine Squamous Epithelial Cells Few <5 /hpf Urine Bacteria Few H None Seen /hpf Urine Glucose Normal Normal mg/dL White Blood Count 8.2 4.4-10.8 10^3/uL Red Blood Count 5.30 H 4.0-5.20 10^6/uL Hemoglobin 13.5 12.2-16.2 g/dL Hematocrit 39.8 36.0-46.0 % Mean Corpuscular Volume 75.1 L 80.0-100.0 fL Mean Corpuscular Hemoglobin 25.5 L 28.0-32.0 pg Mean Corpuscular Hemoglobin Concent 34.0 32.0-36.0 g/dL Red Cell Distribution Width 16.4 H 11.8-14.3 % Platelet Count 289 140-450 10^3/uL Mean Platelet Volume 8.2 6.9-10.8 fL Neutrophils (%) (Auto) 53.3 37.0-80.0 % Lymphocytes (%) (Auto) 39.7 10.0-50.0 % Monocytes (%) (Auto) 5.8 0.0-12.0 % Eosinophils (%) (Auto) 0.7 0.0-7.0 % Basophils (%) (Auto) 0.5 0.0-2.0 % Neutrophils # (Auto) 4.4 1.6-8.6 10 ^3/uL Lymphocytes # (Auto) 3.3 0.4-5.4 10 ^3/uL Monocytes # (Auto) 0.5 0-1.3 10 ^3/uL Eosinophils # (Auto) 0.1 0-0.8 10 ^3/uL Basophils # (Auto) 0 0-0.2 10 ^3/uL Nucleated Red Blood Cells 0.3 % Sodium Level 142 136-145 mmol/L Potassium Level 4.0 3.5-5.1 mmol/L Chloride Level 107 98-107 mmol/L Carbon Dioxide Level 25 20-31 mmol/L Anion Gap 10 5-15 Blood Urea Nitrogen 7 L 9-23 mg/dL Creatinine 0.89 0.550-1.02 mg/dL Glomerular Filtration Rate Calc 77 >90 mL/min BUN/Creatinine Ratio 7.9 L 10.0-20.0 Serum Glucose 142 H 74-106 mg/dL Calcium Level 9.1 8.7-10.4 mg/dL Patient alert. Came in because of nausea vomiting. Vitals stable. Answering questions. Chronic condition. Ambulating without difficulty. No calf tenderness. No calf swelling. Explained to the patient. Continue monitoring. Time of 1ST Reevaluation: 13:25 Reevaluation 1ST: Unchanged Patient Education/Counseling: Diagnosis, Treatment, Need For Follow Up Family Education/Counseling: Diagnosis, Treatment, Need For Follow Up, No Fa antony Present SEPSIS Sepsis Screen Date sepsis recognized/suspect: Apr 13, 2025 Time Sepsis recognized/suspect: 1156 Recent Procedure: No On Antibiotic Therapy: No Respiratory Rate >20: No Heart Rate >90: Yes Temp<36 C (96.8 F) or >38.3 C: No SBP <90 or MAP <65 mmHG: No New Acute Mental Status Change: No Is the patient on CPAP, BIPAP,: No Vital Signs Date Time Temp Pulse Resp B/P (MAP) Pulse Ox O2 Delivery O2 Flow Rate FiO2 04/13/25 13:50 118 18 97 Room Air* 0 21 04/13/25 13:50 98.0 118 18 136/99 (111) 97 98.0 04/13/25 11:53 97.7 127 18 157/92 97 97.7 Laboratory Tests Test 04/13/25 13:41 White Blood Count 8.2 10^3/uL (4.4-10.8) Departure 1 Departure Time of Disposition: 13:16 Impression: Primary Impression: Intractable nausea and vomiting Disposition: 01 HOME / SELF CARE / HOMELESS Condition: Good Discharged With: Self Critical Care Note Critical Care Time?: No Stability Stability form required: No Heart Score Heart Score: Heart Score Response (Comments) Value History N/A 0 EKG N/A 0 Age N/A 0 Risk Factors N/A 0 Troponin N/A 0 Total 0 I personally scribed for STARR MABRY MD ([email or web address]) on 04/13/25 at 12:58. Electronically submitted by Xin Albright ([email or web address]). STARR MABRY MD Apr 13, 2025 12:58
[2025-04-13] MEDS ORDERED: SODIUM CHLORIDE 0.9% 1,000 ML IV ONE (13:15)
[2025-04-13 13:50] VITALS: BP 136/99; PULSE 118; RESP 18; TEMP 98; O2SAT 97
[2025-04-13 14:07] LABS: Hematocrit 39.8 % (36.0-46.0); Hemoglobin 13.5 g/dL (12.2-16.2); Mean Corpuscular Hemoglobin 25.5 pg (28.0-32.0); Mean Corpuscular Volume 75.1 fL (80.0-100.0); Nucleated Red Blood Cells % 0.3 %
[2025-04-13 14:18] LABS: Urine Protein, UAD Negative (Negative)
[2025-04-13 14:20] LABS: Potassium 4.0 mmol/L (3.5-5.1); Sodium 142 mmol/L (136-145)
[2025-04-13 14:21] LABS: Anion Gap 10 (5-15); Calcium 9.1 mg/dL (8.7-10.4); Carbon Dioxide 25 mmol/L (20-31)
[2025-04-13 14:25] LABS: Chloride 107 mmol/L (98-107)
[2025-04-13 14:26] LABS: BUN/Creatinine Ratio 7.9 (10.0-20.0); Blood Urea Nitrogen 7 mg/dL (9-23); Glucose 142 mg/dL (74-106)
== END 2025-04-13 15:37 | disposition home or self-care (01) ==
LOC: ER 11:46
DX: R11.2 Nausea with vomiting, unspecified (principal); M19.90 Unspecified osteoarthritis, unspecified site; I10 Essential (primary) hypertension; E11.9 Type 2 diabetes mellitus without complications; F32.A Depression, unspecified; Z79.899 Other long term (current) drug therapy; Z79.84 Long term (current) use of oral hypoglycemic drugs; Z79.82 Long term (current) use of aspirin; Z87.440 Personal history of urinary (tract) infections; Z87.19 Personal history of other diseases of the digestive system; Z88.8 Allergy status to other drugs, medicaments and biological substances
CPT/HCPCS: 36415; 80048; 81001; 85025